=== PATIENT | female | born 1995 | race Caucasian/White ===

== ENCOUNTER → 2022-07-07 | Outpatient (CLI) | payer MEDICAID ==
[2022-07-07 11:18] LABS: Basophils # (auto) 0 10 ^3/uL (0-0.2); Basophils % (auto) 0.4 % (0.0-2.0); Eosinophils # (auto) 0.1 10 ^3/uL (0-0.8); Eosinophils % (auto) 0.6 % (0.0-7.0); Hematocrit 34.5 % (36.0-46.0); Hemoglobin 11.9 g/dL (12.2-16.2); Lymphocytes # (auto) 1.5 10 ^3/uL (0.4-5.4); Lymphocytes % (auto) 14.1 % (10.0-50.0); Mean Corpuscular Hemoglobin 27.1 pg (28.0-32.0); Mean Corpuscular Hgb Conc. 34.4 g/dL (32.0-36.0); Monocytes # (auto) 0.4 10 ^3/uL (0-1.3); Monocytes % (auto) 3.9 % (0.0-12.0); Neutrophils # (auto) 8.6 10 ^3/uL (1.6-8.6); Nucleated Red Blood Cells % 0.1 %; Red Blood Cells 4.37 10^6/uL (4.0-5.20); Red Cell Distribution Width 14.7 % (11.8-14.3); White Blood Cell 10.6 10^3/uL (4.4-10.8)
[2022-07-07 12:00] LABS: Alcohol, Urine < 3.0 mg/dL (0-10); Amphetamine Screen, Urine NEGATIVE (NEGATIVE); Barbiturate Scree,Urine NEGATIVE (NEGATIVE); Benzodiazephine Screen, Urine NEGATIVE (NEGATIVE); Cannabinoid Screen, Urine NEGATIVE (NEGATIVE); Cocaine Screen, Urine NEGATIVE (NEGATIVE); Opiate Scree,Urine NEGATIVE (NEGATIVE); Phencyclidine Screen, Urine NEGATIVE (NEGATIVE)
[2022-07-08 06:07] LABS: RPR Non Reactive (Non Reactive)
== END | disposition home or self-care (01) ==
LOC: LAB 10:50
PROVIDERS: ATTEND Obstetrics & Gynecology
DX: Z34.80 Encounter for supervision of other normal pregnancy, unspecified trimester (principal); N39.0 Urinary tract infection, site not specified; Z31.430 Encounter of female for testing for genetic disease carrier status for procreative management; Z36.0 Encounter for antenatal screening for chromosomal anomalies; Z3A.00 Weeks of gestation of pregnancy not specified
CPT/HCPCS: 36415; 80307; 83036; 84112; 84144; 84702; 85025; 86592; 86703; 86762; 86850; 86900; 86901; 87086; 87340

== ENCOUNTER → 2022-09-27 | Outpatient (CLI) | payer MEDICAID ==
[2022-09-27 09:08] LABS: Hemoglobin 10.6 g/dL (12.2-16.2); White Blood Cell 10.8 10^3/uL (4.4-10.8)
[2022-09-27 09:10] LABS: Basophils # (auto) 0.2 10 ^3/uL (0-0.2); Basophils % (auto) 1.6 % (0.0-2.0); Eosinophils # (auto) 0.2 10 ^3/uL (0-0.8); Eosinophils % (auto) 1.5 % (0.0-7.0); Hematocrit 31.6 % (36.0-46.0); Lymphocytes # (auto) 1.9 10 ^3/uL (0.4-5.4); Lymphocytes % (auto) 17.8 % (10.0-50.0); Mean Corpuscular Hgb Conc. 33.5 g/dL (32.0-36.0); Mean Corpuscular Volume 77.5 fL (80.0-100.0); Monocytes # (auto) 0.4 10 ^3/uL (0-1.3); Neutrophils # (auto) 8.1 10 ^3/uL (1.6-8.6); Neutrophils % (auto) 75.1 % (37.0-80.0); Red Blood Cells 4.08 10^6/uL (4.0-5.20); Red Cell Distribution Width 15.2 % (11.8-14.3)
== END | disposition home or self-care (01) ==
LOC: LAB 08:52
PROVIDERS: ATTEND Obstetrics & Gynecology
DX: O99.810 Abnormal glucose complicating pregnancy (principal); Z3A.00 Weeks of gestation of pregnancy not specified
CPT/HCPCS: 36415; 82951; 83036; 85025

== ENCOUNTER → 2022-10-18 | Outpatient (CLI) | payer MEDICAID ==
[2022-10-18 11:02] LABS: Urine Bacteria FEW /hpf (None Seen); Urine Blood 3+ /uL (Negative); Urine Mucus FEW (None Seen); Urine Specific Gravity 1.026 (1.001-1.035); Urine WBC 24 /hpf (0 - 5)
== END | disposition home or self-care (01) ==
LOC: LAB 10:05
PROVIDERS: ATTEND Obstetrics & Gynecology
DX: Z34.80 Encounter for supervision of other normal pregnancy, unspecified trimester (principal)
CPT/HCPCS: 81001; 87086

== ENCOUNTER → 2022-11-29 | Outpatient (CLI) | payer MEDICAID ==
[2022-11-29 10:55] LABS: Mean Corpuscular Hgb Conc. 32.8 g/dL (32.0-36.0)
[2022-11-29 10:58] LABS: Hematocrit 33.9 % (36.0-46.0); Hemoglobin 11.1 g/dL (12.2-16.2); Mean Corpuscular Hemoglobin 25.5 pg (28.0-32.0); Mean Corpuscular Volume 77.6 fL (80.0-100.0); Red Blood Cells 4.37 10^6/uL (4.0-5.20); Red Cell Distribution Width 17.1 % (11.8-14.3); White Blood Cell 10.8 10^3/uL (4.4-10.8)
[2022-11-29 11:05] LABS: Basophils % (manual) 0 (0.0-2.0); Blast Cells 0; Eosinophils % (manual) 0 (0-7); Metamyelocytes % 0; Myelocytes % 0; Promyelocytes % 0; Reactive Lymphocytes 0
[2022-11-29 11:40] LABS: Band Neutrophils % (manual) 2; Lymphocytes % (manual) 24 (10.0-50.0); Monocytes % (manual) 9 (0-12)
[2022-11-30 06:07] LABS: RPR Non Reactive (Non Reactive)
== END | disposition home or self-care (01) ==
LOC: LAB 10:28
PROVIDERS: ATTEND Obstetrics & Gynecology
DX: Z34.80 Encounter for supervision of other normal pregnancy, unspecified trimester (principal); Z3A.00 Weeks of gestation of pregnancy not specified
CPT/HCPCS: 36415; 84112; 85007; 85027; 86592

== ENCOUNTER 2022-12-21 05:51 | Inpatient (IN) | payer MEDICAID ==
[~2022-12-21] VITALS: Ht 157.5 cm; Wt 91.2 kg
[2022-12-21] MEDS ORDERED: WITCH HAZEL-GLYCERIN PAD TOP PRN (06:15)
[2022-12-21] MEDS ORDERED: PROMETHAZINE HCL 25 MG/ML 1ML IV PRN (06:15)
[2022-12-21] MEDS ORDERED: BUTORPHANOL TARTRATE 2 MG/1 ML VIAL IV PRN ×2 (06:15)
[2022-12-21] MEDS ORDERED: DERMOPLAST 60ML BOTTLE TOP PRN (06:15)
[2022-12-21] MEDS ORDERED: LIDOCAINE 2%HCL (LOCAL ANESTH.) INJ 20ML MDV IJ PRN (06:15)
[2022-12-21] MEDS ORDERED: PHISODERM TOP SOLN 240ML BTL TOP PRN (06:15)
[2022-12-21 06:47] LABS: Basophils # (auto) 0.1 10 ^3/uL (0-0.2); Eosinophils # (auto) 0.1 10 ^3/uL (0-0.8); Eosinophils % (auto) 1.1 % (0.0-7.0); Lymphocytes # (auto) 1.8 10 ^3/uL (0.4-5.4); Monocytes # (auto) 0.5 10 ^3/uL (0-1.3); White Blood Cell 9.6 10^3/uL (4.4-10.8)
[2022-12-21 06:49] LABS: Basophils % (auto) 0.8 % (0.0-2.0); Hematocrit 35.2 % (36.0-46.0); Hemoglobin 11.6 g/dL (12.2-16.2); Lymphocytes % (auto) 18.5 % (10.0-50.0); Mean Corpuscular Volume 78.6 fL (80.0-100.0); Neutrophils # (auto) 7.2 10 ^3/uL (1.6-8.6); Neutrophils % (auto) 74.6 % (37.0-80.0); Nucleated Red Blood Cells % 0.2 %; Red Blood Cells 4.47 10^6/uL (4.0-5.20); Red Cell Distribution Width 17.8 % (11.8-14.3)
[2022-12-21 06:55] LABS: Calcium 8.4 mg/dL (8.5-10.1); Potassium 3.7 mmol/L (3.5-5.1)
[2022-12-21] MEDS: miSOPROStol 50 MCG per PRE-CUT 1/2 TAB PO PRN ×2 (06:59→10:59)
[2022-12-21 07:00] LABS: Albumin 2.8 g/dL (3.4-5.0); BUN/Creatinine Ratio 14.5 (10.0-20.0); Bilirubin, Total 0.3 mg/dL (0.2-1.0); Total Protein 6.5 g/dL (6.4-8.2)
[2022-12-21] MEDS: LACTATED RINGER'S 1,000 ML IV SCH ×2 (07:01→14:15)
[2022-12-21 07:05] LABS: INR 0.93 (0.9-1.15); Partial Thromboplastin Time 26.5 SEC (24.5-34.5)
[2022-12-21] MEDS ORDERED: METHYLERGONOVINE MALEATE 0.2 MG/ML AMP IM ONE (07:15)
[2022-12-21] MEDS ORDERED: miSOPROStol 100 mcg TAB PR PRN (07:15)
[2022-12-21] MEDS ORDERED: CARBOPROST TROMETHAMINE 250 MCG/1ML VIAL IM PRN (07:15)
[2022-12-21] MEDS ORDERED: DIPHENOXYLATE W/ATROPINE 2.5 MG TAB PO PRN (07:15)
[2022-12-21] MEDS ORDERED: miSOPROStol 100 mcg TAB SL PRN (07:15)
[2022-12-21] MEDS ORDERED: LACT. RINGERS/OXYTOCIN 20UNITS 500 ML IV ONE ×2 (07:15→07:45)
[2022-12-21 07:21] LABS: Urine Bacteria FEW /hpf (None Seen); Urine Blood Negative /uL (Negative); Urine Mucus FEW (None Seen); Urine Specific Gravity 1.026 (1.001-1.035); Urine WBC 4 /hpf (0 - 5)
[2022-12-21 07:24] LABS: Alcohol, Urine < 3.0 mg/dL (0-10); Amphetamine Screen, Urine NEGATIVE (NEGATIVE); Barbiturate Scree,Urine NEGATIVE (NEGATIVE); Benzodiazephine Screen, Urine NEGATIVE (NEGATIVE); Cannabinoid Screen, Urine NEGATIVE (NEGATIVE); Cocaine Screen, Urine NEGATIVE (NEGATIVE); Opiate Scree,Urine NEGATIVE (NEGATIVE); Phencyclidine Screen, Urine NEGATIVE (NEGATIVE)
[2022-12-21] MEDS ORDERED: LIDOCAINE HCL 2 %PF INJ 10ML AMP IJ ONE (11:45)
[2022-12-21] MEDS ORDERED: ePHEDrine SULFATE 50 MG/ML AMP IV ONE (11:45)
[2022-12-21] MEDS ORDERED: LACTATED RINGER'S 1,000 ML IV ONE (11:45)
[2022-12-21] MEDS ORDERED: NALOXONE HCL 0.4 MG/ML VIAL IV ONE (11:45)
[2022-12-21] MEDS ORDERED: fentaNYL CITRATE 100 MCG/2 ML VL IV ONE (11:45)
[2022-12-21] MEDS ORDERED: ROPIVACAINE HCL 200 ML EPI SCH (11:45)
[2022-12-21] MEDS ORDERED: ONDANSETRON ODT 4 MG TAB PO PRN (14:00)
[2022-12-21] MEDS ORDERED: ACETAMINOPHEN 325 MG TAB PO PRN (14:00)
[2022-12-21] MEDS: IBUPROFEN 600 MG TAB PO PRN (16:45)
[2022-12-21 18:39] VITALS: BP 105/62
[2022-12-21] MEDS ORDERED: DOCUSATE SOD 100 MG CAP PO SCH (22:00)
[2022-12-21 23:16] VITALS: BP 91/54
[2022-12-22] MEDS: IBUPROFEN 600 MG TAB PO PRN ×2 (01:38→08:02)
[2022-12-22 02:30] VITALS: BP 103/61
[2022-12-22 06:17] LABS: RPR Non Reactive (Non Reactive)
[2022-12-22 07:00] VITALS: BP 104/58
[2022-12-22 08:06] LABS: Rubella Antibodies, IgG <0.90 index (Immune >0.99)
[2022-12-22 11:13] LABS: Basophils # (auto) 0.1 10 ^3/uL (0-0.2); Basophils % (auto) 0.5 % (0.0-2.0); Eosinophils # (auto) 0.1 10 ^3/uL (0-0.8); Eosinophils % (auto) 0.6 % (0.0-7.0); Hematocrit 35.2 % (36.0-46.0); Hemoglobin 11.2 g/dL (12.2-16.2); Lymphocytes # (auto) 2.3 10 ^3/uL (0.4-5.4); Mean Corpuscular Hgb Conc. 31.9 g/dL (32.0-36.0)
[2022-12-22 11:14] LABS: Lymphocytes % (auto) 16.1 % (10.0-50.0); Mean Corpuscular Hemoglobin 25.1 pg (28.0-32.0); Mean Corpuscular Volume 78.7 fL (80.0-100.0); Monocytes # (auto) 0.6 10 ^3/uL (0-1.3); Neutrophils # (auto) 11.2 10 ^3/uL (1.6-8.6); Neutrophils % (auto) 78.8 % (37.0-80.0); Nucleated Red Blood Cells % 0.1 %; Red Blood Cells 4.48 10^6/uL (4.0-5.20); Red Cell Distribution Width 18.1 % (11.8-14.3); White Blood Cell 14.1 10^3/uL (4.4-10.8)
[2022-12-22 11:15] VITALS: BP 106/57
[2022-12-22] MEDS ORDERED: PREN-96 PO (12:18)
[2022-12-22] MEDS ORDERED: ACET-1882 PO (12:18)
[2022-12-22] MEDS ORDERED: DOCU-265 PO (12:18)
[2022-12-22] MEDS ORDERED: IBU600T PO (12:18)
== END 2022-12-22 16:05 | disposition home or self-care (01) | DRG 560 ==
LOC: LDRP 05:51 → OBSVTOIN 06:15 → LDRP 12:42
PROVIDERS: ADMIT Obstetrics & Gynecology; ATTEND Obstetrics & Gynecology
PROC: 10E0XZZ Delivery of Products of Conception, External Approach (ICD-10-PCS; principal; 2022-12-21)
PROC: 0HQ9XZZ Repair Perineum Skin, External Approach (ICD-10-PCS; 2022-12-21)
PROC: 3E0R3BZ Introduction of Anesthetic Agent into Spinal Canal, Percutaneous Approach (ICD-10-PCS; 2022-12-21)
PROC: 00HU33Z Insertion of Infusion Device into Spinal Canal, Percutaneous Approach (ICD-10-PCS; 2022-12-21)
DX: O99.214 Obesity complicating childbirth (principal); Z37.0 Single live birth; E66.01 Morbid (severe) obesity due to excess calories; O70.0 First degree perineal laceration during delivery; Z3A.39 39 weeks gestation of pregnancy
CPT/HCPCS: 36415; 59025; 59409; 62282; 80053; 80307; 81001; 81002; 85025; 85610; 85730; 86592; 86762; 86850; 86900; 86901; 94760; 96360; 96361; 96365; 96366; G0378; J2590

== ENCOUNTER → 2023-12-05 | Outpatient (CLI) | payer MEDICAID ==
[~2023-12-05] MED LIST: ACET-1882 PO; DOCU-265 PO; IBU600T PO; PREN-96 PO
[2023-12-05 11:09] LABS: Basophils # (auto) 0.1 10 ^3/uL (0-0.2); Eosinophils # (auto) 0.2 10 ^3/uL (0-0.8); Hemoglobin 12.5 g/dL (12.2-16.2); Monocytes # (auto) 0.4 10 ^3/uL (0-1.3)
[2023-12-05 11:13] LABS: Basophils % (auto) 0.7 % (0.0-2.0); Eosinophils % (auto) 2.2 % (0.0-7.0); Hematocrit 37.4 % (36.0-46.0); Lymphocytes % (auto) 21.7 % (10.0-50.0); Mean Corpuscular Hemoglobin 26.4 pg (28.0-32.0); Mean Corpuscular Hgb Conc. 33.3 g/dL (32.0-36.0); Mean Corpuscular Volume 79.1 fL (80.0-100.0); Monocytes % (auto) 4.2 % (0.0-12.0); Neutrophils # (auto) 6.7 10 ^3/uL (1.6-8.6); Neutrophils % (auto) 71.2 % (37.0-80.0); Red Blood Cells 4.72 10^6/uL (4.0-5.20); Red Cell Distribution Width 15.7 % (11.8-14.3); White Blood Cell 9.4 10^3/uL (4.4-10.8)
[2023-12-05 11:28] LABS: Amphetamine Screen, Urine Neg (NEGATIVE); Barbiturate Scree,Urine Neg (NEGATIVE); Cocaine Screen, Urine Neg (NEGATIVE)
[2023-12-05 11:29] LABS: Benzodiazephine Screen, Urine Neg (NEGATIVE); Opiate Scree,Urine Neg (NEGATIVE); Phencyclidine Screen, Urine Neg (NEGATIVE)
[2023-12-05 11:30] LABS: Cannabinoid Screen, Urine Neg (NEGATIVE)
[2023-12-06 07:07] LABS: RPR Non Reactive (Non Reactive)
[2023-12-06 08:07] LABS: Varicella Zoster IgG Antibody 344 index (Immune >165)
[2023-12-07 03:06] LABS: Chlamydia Trachomatis, NAA Negative (Negative); Neisseria gonorrhoeae, NAA Negative (Negative)
[2023-12-07 12:07] LABS: QuantiFERON-TB Gold Plus Negative (Negative)
== END | disposition home or self-care (01) ==
LOC: LAB 10:28
PROVIDERS: ATTEND Obstetrics & Gynecology
DX: Z34.80 Encounter for supervision of other normal pregnancy, unspecified trimester (principal); Z72.51 High risk heterosexual behavior; Z3A.00 Weeks of gestation of pregnancy not specified
CPT/HCPCS: 36415; 80307; 83036; 84144; 84702; 85025; 86592; 86703; 86762; 86787; 86803; 86850; 86900; 86901; 87086; 87340

== ENCOUNTER 2023-12-22 08:00 | Emergency (ER) | payer MEDICAID ==
[~2023-12-22] VITALS: Ht 157.5 cm; Wt 82.4 kg
[2023-12-22 08:32] VITALS: BP 116/70; PULSE 89; RESP 16; TEMP 98.9; O2SAT 98
[2023-12-22] MEDS ORDERED: CLIN1CAP70 PO (08:37)
[2023-12-22] MEDS: cefTRIAXone SOD 1,000 MG VL IM ONE (08:49)
== END 2023-12-22 08:54 | disposition home or self-care (01) ==
LOC: ER 08:00
DX: O99.612 Diseases of the digestive system complicating pregnancy, second trimester (principal); K04.7 Periapical abscess without sinus; Z3A.16 16 weeks gestation of pregnancy; Z79.899 Other long term (current) drug therapy
CPT/HCPCS: 96372; 99283; J0696

== ENCOUNTER 2024-02-03 08:42 | Emergency (ER) | payer MEDICAID ==
[~2024-02-03] VITALS: Ht 157.5 cm; Wt 83.8 kg
[~2024-02-03 08:42] MED LIST changes: +CLIN1CAP70 PO
[2024-02-03 09:47] VITALS: BP 116/64; PULSE 94; RESP 16; TEMP 97.6; O2SAT 99
[2024-02-03] MEDS: cefTRIAXone SOD 1,000 MG VL IM ONE (09:56)
[2024-02-03] MEDS ORDERED: IBUP-1456 PO (10:02)
[2024-02-03] MEDS ORDERED: AMOX875T3 PO (10:02)
[2024-02-03] MEDS ORDERED: ACET-1882 PO (10:18)
== END 2024-02-03 10:18 | disposition home or self-care (01) ==
LOC: ER 08:42
DX: K04.7 Periapical abscess without sinus (principal); Z79.899 Other long term (current) drug therapy
CPT/HCPCS: 96372; 99283; J0696

== ENCOUNTER → 2024-04-15 | Outpatient (CLI) | payer MEDICAID ==
[~2024-04-15] MED LIST changes: +AMOX875T3 PO
[2024-04-15 07:51] LABS: Basophils # (auto) 0.1 10 ^3/uL (0-0.2); Eosinophils # (auto) 0.2 10 ^3/uL (0-0.8); Lymphocytes # (auto) 2.1 10 ^3/uL (0.4-5.4); Red Blood Cells 4.26 10^6/uL (4.0-5.20)
[2024-04-15 07:53] LABS: Basophils % (auto) 0.5 % (0.0-2.0); Eosinophils % (auto) 2.2 % (0.0-7.0); Hematocrit 31.6 % (36.0-46.0); Hemoglobin 10.4 g/dL (12.2-16.2); Lymphocytes % (auto) 20.9 % (10.0-50.0); Mean Corpuscular Hemoglobin 24.3 pg (28.0-32.0); Mean Corpuscular Hgb Conc. 32.8 g/dL (32.0-36.0); Mean Corpuscular Volume 74.3 fL (80.0-100.0); Monocytes # (auto) 0.5 10 ^3/uL (0-1.3); Monocytes % (auto) 5.3 % (0.0-12.0); Neutrophils # (auto) 7.3 10 ^3/uL (1.6-8.6); Neutrophils % (auto) 71.1 % (37.0-80.0); Platelet Count (auto) 210 10^3/uL (140-450); Red Cell Distribution Width 16.8 % (11.8-14.3); White Blood Cell 10.2 10^3/uL (4.4-10.8)
== END | disposition home or self-care (01) ==
LOC: LAB 07:28
PROVIDERS: ATTEND Obstetrics & Gynecology
DX: Z34.83 Encounter for supervision of other normal pregnancy, third trimester (principal)
CPT/HCPCS: 36415; 82951; 83036; 85025

== ENCOUNTER → 2024-04-29 | Outpatient (CLI) | payer MEDICAID ==
[2024-04-29 10:50] LABS: Basophils # (auto) 0.1 10 ^3/uL (0-0.2); Basophils % (auto) 0.9 % (0.0-2.0); Eosinophils # (auto) 0.1 10 ^3/uL (0-0.8); Lymphocytes # (auto) 2.1 10 ^3/uL (0.4-5.4); Monocytes # (auto) 0.5 10 ^3/uL (0-1.3); Nucleated Red Blood Cells % 0.1 %; White Blood Cell 8.2 10^3/uL (4.4-10.8)
[2024-04-29 10:52] LABS: Eosinophils % (auto) 1.3 % (0.0-7.0); Hematocrit 30.9 % (36.0-46.0); Lymphocytes % (auto) 25.2 % (10.0-50.0); Mean Corpuscular Hemoglobin 23.5 pg (28.0-32.0); Mean Corpuscular Hgb Conc. 32.3 g/dL (32.0-36.0); Mean Corpuscular Volume 72.8 fL (80.0-100.0); Monocytes % (auto) 6.1 % (0.0-12.0); Neutrophils # (auto) 5.5 10 ^3/uL (1.6-8.6); Neutrophils % (auto) 66.5 % (37.0-80.0); Platelet Count (auto) 192 10^3/uL (140-450); Red Blood Cells 4.25 10^6/uL (4.0-5.20)
[2024-04-30 07:06] LABS: RPR Non Reactive (Non Reactive)
[2024-05-01 06:07] LABS: Chlamydia Trachomatis, NAA Negative (Negative); Neisseria gonorrhoeae, NAA Negative (Negative)
== END | disposition home or self-care (01) ==
LOC: LAB 10:07
PROVIDERS: ATTEND Obstetrics & Gynecology
DX: Z11.3 Encounter for screening for infections with a predominantly sexual mode of transmission (principal)
CPT/HCPCS: 36415; 85025; 86592

== ENCOUNTER 2024-05-01 10:00 | Observation (INO) | payer MEDICAID ==
--- NOTE | 2024-05-01 11:10 | DVH ---
CLINICAL HISTORY: Gestational diabetes. COMPARISON: None TECHNIQUE: biophysical profile was performed. Transabdominal sonographic images of the fetus we re obtained. FINDINGS: The fetus is in cephalic position. heart rate measures 141 BPM. Amniotic fluid index measures 12.3 cm. The placenta is posterior in position. BPP profile is an overall score of 8/8, with 2/2 points for breathing, with at least one episode of breathing over a 30 second duration during a 30 minute observation, 2/2 points for m ovements, with 3 or more discrete body or limb movements, 2/2 points for tone, with one or more episodes of extremity extension with return to flexion, or opening and closing of hand, and 2/ 2 points for amniotic fluid, with at least 1 pocket of amniotic fluid that measures 2 cm in 2 perpend icular planes. IMPRESSION: BPP score of 8/8.
--- NOTE | 2024-05-01 11:23 | DVHDS2 ---
Physician Discharge Progress N Final Diagnosis: gdm Operations or Procedures: Operations or Procedures nst,sono Condition on Discharge: Good Disposition: Home Discharge Instructions: Diet: Consistent carbohydrate Activity: No Restrictions, As Tolerated Medications: na Follow Up Care: Specialist: 1w Discharge Statement: "Patient was advised to return to the ER or call 911 if any headaches, dizziness, shortness of breath, chest pain, abdominal pain, bleeding, fevers, or worsening of medical condition. Patient was counseled about treatment plan, medications, possible side effects, patientverbalized understanding. All questions were answered to the best of my ability. This discharge took greater then 30 minutes in planning, reviewing documentation, counseling the patient, and discussing with other team members." KEYUR JAMES DO May 01, 2024 11:23
== END 2024-05-01 11:28 | disposition home or self-care (01) ==
LOC: LDRP 10:00
PROVIDERS: ADMIT Obstetrics & Gynecology; ATTEND Obstetrics & Gynecology
DX: O24.419 Gestational diabetes mellitus in pregnancy, unspecified control (principal); Z3A.35 35 weeks gestation of pregnancy
CPT/HCPCS: 59025; 76818; 81002; 82948; 82962; 94760; G0378

== ENCOUNTER 2024-05-07 09:55 | Observation (INO) | payer MEDICAID ==
[~2024-05-07] VITALS: Ht 154.9 cm; Wt 81.6 kg
--- NOTE | 2024-05-07 11:08 | DVH ---
BIOPHYSICAL PROFILE HISTORY: GDMA1 TECHNIQUE: Multiple transabdominal real-time grayscale sonographic images through the gravid uterus of the fetus with duplex Doppler color flow and M-mode spectral analysis FINDINGS: BIOPHYSICAL PROFILE: breathing score: 2 movement score: 2 tone score: 2 Quantitative MEE score: 2 (MEE: 10.3 Cm.) Total score: 8 The cervix not well visualized. Single live fetus in cephalic presentation. heart rate 159 beats per minute. IMPRESSION: Biophysical profile score: 8
[2024-05-07] MEDS: ONDANSETRON HCL 4 MG/2 ML VIAL IV ONE (12:29)
[2024-05-07] MEDS: LACTATED RINGER'S 1,000 ML IV ONE (12:30)
--- NOTE | 2024-05-07 20:26 | DVHDS2 ---
Physician Discharge Progress N Final Diagnosis: testing for GDM, A1 Secondary Diagnosis: upper respiratory infection Operations or Procedures: Operations or Procedures 29yo IUP@36.2wks, c/o N/V and having a cold VSS UA wnl 1L LR IV bolus and zofran IVP given NST reactive (verified by 2 RNs) BPP WNL FKC/PTL precautions reviewed Condition on Discharge: Stable Disposition: Home Discharge Instructions: Diet: Consistent carbohydrate Activity: No Restrictions, As Tolerated Medications: see med list Follow Up Care: Specialist: f/u in 1 wk, stay hydrated and take OTC cold medication (list of meds okay to take in given by RN) Discharge Statement: "Patient was advised to return to the ER or call 911 if any headaches, dizziness, shortness of breath, chest pain, abdominal pain, bleeding, fevers, or worsening of medical condition. Patient was counseled about treatment plan, medications, possible side effects, patientverbalized understanding. All questions were answered to the best of my ability. This discharge took greater then 30 minutes in planning, reviewing documentation, counseling the patient, and discussing with other team members." STEFFEN CANDELARIO CNM May 07, 2024 20:26
== END 2024-05-07 16:04 | disposition home or self-care (01) ==
LOC: LDRP 09:55
PROVIDERS: ADMIT Obstetrics & Gynecology; ATTEND Obstetrics & Gynecology
DX: O21.2 Late vomiting of pregnancy (principal); O99.513 Diseases of the respiratory system complicating pregnancy, third trimester; J06.9 Acute upper respiratory infection, unspecified; O24.419 Gestational diabetes mellitus in pregnancy, unspecified control; Z98.890 Other specified postprocedural states; Z79.899 Other long term (current) drug therapy; Z3A.36 36 weeks gestation of pregnancy
CPT/HCPCS: 59025; 76818; 81002; 82948; 82962; 94760; 96361; 96374; G0378; J2405

== ENCOUNTER 2024-05-14 10:38 | Observation (INO) | payer MEDICAID ==
--- NOTE | 2024-05-14 11:59 | DVH ---
BIOPHYSICAL PROFILE HISTORY: GDMA1 TECHNIQUE: Multiple transabdominal real-time grayscale sonographic images through the gravid uterus of the fetus with duplex Doppler color flow and M-mode spectral analysis FINDINGS: BIOPHYSICAL PROFILE: breathing score: 2 movement score: 2 tone score: 2 Quantitative MEE score: 2 (MEE: 11.7 Cm.) Total score: 8 The cervix not well visualized. Single live fetus in vertex presentation. heart rate 138 beats per minute. Posterior placenta without previa or abruption IMPRESSION: Biophysical profile score: 8
--- NOTE | 2024-05-14 12:11 | DVHDS2 ---
Physician Discharge Progress N Final Diagnosis: testing for GDM, A1 Operations or Procedures: Operations or Procedures 29yo IUP@37.2wks VSS UA wnl NST reactive (verified by 2 RNs) BPP wnl FKC/PTL precautions reviewed Condition on Discharge: Stable Disposition: Home Discharge Instructions: Diet: Consistent carbohydrate Activity: No Restrictions, As Tolerated Medications: see med list Follow Up Care: Specialist: f/u in 1 wk Discharge Statement: "Patient was advised to return to the ER or call 911 if any headaches, dizziness, shortness of breath, chest pain, abdominal pain, bleeding, fevers, or worsening of medical condition. Patient was counseled about treatment plan, medications, possible side effects, patientverbalized understanding. All questions were answered to the best of my ability. This discharge took greater then 30 minutes in planning, reviewing docu mentation, counseling the patient, and discussing with other team members." STEFFEN CANDELARIO CNM May 14, 2024 12:11
== END 2024-05-14 12:16 | disposition home or self-care (01) ==
LOC: LDRP 10:38
PROVIDERS: ADMIT Obstetrics & Gynecology; ATTEND Obstetrics & Gynecology
DX: O24.419 Gestational diabetes mellitus in pregnancy, unspecified control (principal); Z3A.37 37 weeks gestation of pregnancy; Z79.899 Other long term (current) drug therapy; Z98.890 Other specified postprocedural states
CPT/HCPCS: 59025; 76818; 81002; 82948; 82962; 94760; G0378

== ENCOUNTER 2024-05-21 09:40 | Observation (INO) | payer MEDICAID ==
[~2024-05-21] VITALS: Ht 165.1 cm; Wt 90.7 kg
--- NOTE | 2024-05-21 10:48 | DVH ---
BIOPHYSICAL PROFILE HISTORY: GDMA1 Comparison Study: 05/14/2024 TECHNIQUE: Multiple real-time grayscale sonographic images through the gravid uterus of the fetus wi th duplex Doppler color flow and M-mode spectral analysis FINDINGS: BIOPHYSICAL PROFILE: breathing score: 2 movement score: 2 tone score: 2 Quantitative MEE score: 2 (MEE: 15.4 Cm.) Total score: 8 The cervix is closed and measures 2.9 cm with funneling Single live fetus in cephalic presentation. heart rate 136 beats per minute. Posterior placenta without previa or abruption IMPRESSION: Biophysical profile score: 8 The cervix is closed and measures 2.9 cm with funneling
[2024-05-21] MEDS ORDERED: LACTATED RINGER'S 1,000 ML IV ONE (13:45)
--- NOTE | 2024-05-21 21:59 | DVHDS2 ---
Physician Discharge Progress N Final Diagnosis: testing for 2VC/GDM,A1 Operations or Procedures: Operations or Procedures 29yo IUP@38.2wks VSS UA wnl Initally FHR baseline appeared to be 145 then FHR baseline prior to d/c was 120 with prolonged accels, moderate variability, -decels (NST reactive) 1L LR IV fluid given BPP wnl FKC/Labor precautions reviewed. Dr. Paulino reviewed EFM too, agrees POC. Condition on Discharge: Stable Disposition: Home Discharge Instructions: Diet: Consistent carbohydrate Activity: No Restrictions, As Tolerated Medications: see med list Follow Up Care: Specialist: f/u in 1wk Discharge Statement: "Patient was advised to return to the ER or call 911 if any headaches, dizziness, shortness of breath, chest pain, abdominal pain, bleeding, fevers, or worsening of medical condition. Patient was counseled about treatment plan, medications, possible side effects, patientverbalized understanding. All questions were answered to the best of my ability. This discharge took greater then 30 minutes in planning, reviewing documentation, counseling the patient, and discussing with other team members." STEFFEN CANDELARIO CNM May 21, 2024 21:59
== END 2024-05-21 13:20 | disposition home or self-care (01) ==
LOC: LDRP 09:40 → UNDOADMOB 09:40 → LDRP 09:57 → UNDODISOB 13:20
PROVIDERS: ADMIT Obstetrics & Gynecology; ATTEND Obstetrics & Gynecology
CPT/HCPCS: 59025 ×2; 76818 ×2; 81002 ×2; 82948 ×2; 82962 ×2; 94760 ×2; 96360 ×2; 96361 ×2; G0378

== ENCOUNTER 2024-05-27 20:09 | Inpatient (IN) | payer MEDICAID ==
[~2024-05-27] VITALS: Ht 30.5 cm; Wt 0.5 kg
[2024-05-27] MEDS ORDERED: BUTORPHANOL TARTRATE 2 MG/1 ML VIAL IV PRN ×2 (21:00)
[2024-05-27] MEDS ORDERED: LIDOCAINE 2%HCL (LOCAL ANESTH.) INJ 20ML MDV IJ PRN (21:00)
--- NOTE | 2024-05-27 21:11 | DVHHP ---
ADMIT DATE: 05/27/2024 CHIEF COMPLAINT: Labor. HISTORY OF PRESENT ILLNESS: The patient is a 29-year-old 4, para 5 with EDC 06/02/2024, estimated gestational age of 39 weeks, admitted for active labor. The patient has GDM A1. She denies having any rupture of membrane or vaginal bleeding. PAST MEDICAL HISTORY: None. PAST SURGICAL HISTORY: None. SOCIAL HISTORY: None. FAMILY HISTORY: None. OBSTETRIC AND GYNECOLOGIC HISTORY: Four normal vaginal delivery. REVIEW OF SYSTEMS: Consistent with HPI. PHYSICAL EXAMINATION: VITAL SIGNS: Stable, afebrile. HEENT: Within normal limits. CARDIOVASCULAR: Regular rate and rhythm. LUNGS: Clear to auscultation. BREASTS: Symmetrical. No masses. ABDOMEN: Gravid. Positive heart rate. PELVIC: 5, 90, -1. EXTREMITIES: No clubbing, cyanosis or edema. IMPRESSION: * Intrauterine at 39 weeks in active labor. * Gestational diabetes mellitus. PLAN: Expectant vaginal delivery. Informed consent obtained. Risks, complication of delivery including infection, bleeding, hematoma formation, possibility of shoulder dystocia discussed with the patient. Options reviewed. All questions answered. Option of primary discussed with the patient. The patient does not want primary in event of macrosomia. She understands risks, complication of shoulder dystocia, long-term, short-term morbidity and mortality discussed with the patient. The patient wishes to proceed with planned procedure. DO ESA Crane/TED TID: [id number] RECEIPT: [id number]
[2024-05-27] MEDS ORDERED: NALOXONE HCL 0.4 MG/ML VIAL IV ONE (21:15)
[2024-05-27] MEDS ORDERED: ePHEDrine SULFATE 50 MG/ML AMP IV ONE (21:15)
[2024-05-27 21:37] LABS: Hematocrit 35.1 % (36.0-46.0); Lymphocytes # (auto) 1.9 10 ^3/uL (0.4-5.4); Mean Corpuscular Hemoglobin 21.8 pg (28.0-32.0); Mean Corpuscular Hgb Conc. 31.3 g/dL (32.0-36.0); Monocytes # (auto) 0.6 10 ^3/uL (0-1.3); Neutrophils # (auto) 8.9 10 ^3/uL (1.6-8.6); Platelet Count (auto) 200 10^3/uL (140-450); White Blood Cell 11.5 10^3/uL (4.4-10.8)
[2024-05-27 21:38] LABS: Basophils # (auto) 0 10 ^3/uL (0-0.2); Basophils % (auto) 0.3 % (0.0-2.0); Eosinophils # (auto) 0 10 ^3/uL (0-0.8); Eosinophils % (auto) 0.4 % (0.0-7.0); Lymphocytes % (auto) 16.5 % (10.0-50.0); Mean Corpuscular Volume 69.7 fL (80.0-100.0); Monocytes % (auto) 5.2 % (0.0-12.0); Neutrophils % (auto) 77.6 % (37.0-80.0); Nucleated Red Blood Cells % 0.2 %; Red Blood Cells 5.03 10^6/uL (4.0-5.20); Red Cell Distribution Width 18.4 % (11.8-14.3)
[2024-05-27 21:45] LABS: Urine Bacteria FEW /hpf (None Seen); Urine Blood Negative /uL (Negative); Urine Clarity Turbid (Clear); Urine Color Light-Yellow (Yellow); Urine Mucus FEW (None Seen); Urine Protein, UAD TRACE (Negative); Urine Specific Gravity 1.016 (1.001-1.035); Urine Urobilinogen Normal (Negative); Urine WBC 6 /hpf (0 - 5); Urine pH 6.5 (5.0-9.0)
[2024-05-27 21:56] LABS: INR 0.9 (0.9-1.15); Partial Thromboplastin Time 25.4 SEC (24.5-34.5); Prothrombin Time 9.6 sec (9.3-11.8)
[2024-05-27 22:04] LABS: Amphetamine Screen, Urine Neg (NEGATIVE); Barbiturate Scree,Urine Neg (NEGATIVE); Benzodiazephine Screen, Urine Neg (NEGATIVE); Cocaine Screen, Urine Neg (NEGATIVE); Opiate Scree,Urine Neg (NEGATIVE); Phencyclidine Screen, Urine Neg (NEGATIVE)
[2024-05-27] MEDS: LACTATED RINGER'S 1,000 ML IV ONE (22:04)
[2024-05-27 22:05] LABS: Cannabinoid Screen, Urine Neg (NEGATIVE)
[2024-05-27 22:06] LABS: Alanine Aminotransferase 15 U/L (7-40); Alkaline Phosphatase 169 U/L (46-116); Calcium 9.7 mg/dL (8.7-10.4); Carbon Dioxide 18 mmol/L (20-31); Chloride 107 mmol/L (98-107)
[2024-05-27 22:07] LABS: Albumin 4.2 g/dL (3.2-4.8); Anion Gap 14 (5-15); Aspartate Aminotransferase 11 U/L (13-40); BUN/Creatinine Ratio 9.2 (10.0-20.0); Bilirubin, Total 0.4 mg/dL (0.2-1.0); Blood Urea Nitrogen 6 mg/dL (9-23); Glucose 86 mg/dL (74-106); Potassium 3.5 mmol/L (3.5-5.1); Sodium 139 mmol/L (136-145); Total Protein 6.5 g/dL (5.7-8.2)
[2024-05-27] MEDS: fentaNYL CITRATE 100 MCG/2 ML VL ONE (22:45)
--- NOTE | 2024-05-27 23:35 | EPIDURAL ---
Anesthesia Procedural Note - Epidural Informed consent obtained?: Yes Medication Administered: Fentanyl 100 mcg Sterile prept drape: Yes Spinal level of insertion: L4-L5 Test dose of lidocaine & Epine: Negative Infusion started: Yes KESHIA VILLAFUERTE MD May 27, 2024 23:35
[2024-05-28] MEDS: fentaNYL CITRATE 100 MCG/2 ML VL IV ONE (00:16)
[2024-05-28] MEDS: LACTATED RINGER'S 1,000 ML IV SCH (01:19)
[2024-05-28] MEDS ORDERED: miSOPROStol 100 mcg TAB SL PRN (01:30)
[2024-05-28] MEDS ORDERED: miSOPROStol 100 mcg TAB PR PRN (01:30)
[2024-05-28] MEDS ORDERED: CARBOPROST TROMETHAMINE 250 MCG/1ML VIAL IM PRN (01:30)
[2024-05-28] MEDS ORDERED: METHYLERGONOVINE MALEATE 0.2 MG/ML AMP IM ONE (02:30)
[2024-05-28] MEDS: WITCH HAZEL-GLYCERIN PAD TOP PRN (02:41)
[2024-05-28] MEDS: DERMOPLAST 60ML BOTTLE TOP PRN (02:41)
[2024-05-28] MEDS: PHISODERM TOP SOLN 240ML BTL TOP PRN (02:41)
--- NOTE | 2024-05-28 04:41 | DVHPN2 ---
Chief Complaints Patient reports: No new complaints, Feels better Nursing reports: No new complaints Objective Vitals Vital Signs Date Time Temp Pulse Resp B/P (MAP) Pulse Ox O2 Delivery O2 Flow Rate FiO2 05/27/24 22:45 116/67 Medications Current Medications Medications (Trade) Dose Ordered Sig/Elvia Route PRN Reason Start Time Stop Time Status Last Admin Benzocaine (Dermoplast) 1 applic PRN PRN TOP PERINEAL AREA DISCOMFORT 05/27/24 21:00 05/28/24 02:41 Butorphanol Tartrate (Stadol Injection) 1 mg Q4HPRN PRN IV MODERATE PAIN (4-6 PAIN SCALE) 05/27/24 21:00 Butorphanol Tartrate (Stadol Injection) 2 mg Q4HPRN PRN IV SEVERE PAIN (7-10 PAIN SCALE) 05/27/24 21:00 Lactated Ringer's 1,000 ml @ 125 mls/hr Q8H IV 05/27/24 21:00 05/28/24 01:19 Lidocaine HCl (Xylocaine) 20 ml ONCE PRN IJ PERINEAL AREA DISCOMFORT 05/27/24 21:00 Misoprostol (Cytotec) 200 mcg ONCE PRN SL BLEED/HEMORRHAGE 05/28/24 01:30 Misoprostol (Cytotec) 600 mcg ONCE PRN DC BLEED/HEMORRHAGE 05/28/24 01:30 Sodium Lauryl Sulfate (Phisoderm) 240 ml PRN PRN TOP PERINEAL AREA DISCOMFORT 05/27/24 21:00 05/28/24 02:41 Kenton Oliver (Tucks) 1 pad PRN PRN TOP PERINEAL AREA DISCOMFORT 05/27/24 21:00 05/28/24 02:41 Others VE=10C,/-1/100 Studies Laboratory Tests 05/27/24 21:12 Test 05/27/24 21:12 Range/Units Serum Glucose 86 74-106 mg/dL Ass/Plan Assessment ACTIVE LAbop Plan wants to try going natural on her own KEYUR JAMES May 28, 2024 04:41
--- NOTE | 2024-05-28 08:01 | LDN2 ---
Labor and Delivery Note Date 05/28/24 Age 29 5 Para 5 now AB 0 EDC 06/02/24 EGA 39.2wks Diagnosis spontaneous labor, AROM, then Vaginal Delivery: VTX Vacuum Assisted: No Placenta: Spontaneous Sex: Male Weight pending Apgars 8/8 Nuchal Cord Present: No Nuchal Cord Transected: No Amniotic Fluid: Clear Anesthesia epidural Episiotomy: No Extension: No Lacerations: No Repaired with n/a EBL QBL 300ml Complications none Conditions stable [employer] Percy Delivery Summary At 0734 this 29yo now delivered a viable Male by w/ APGARS 8/8. YURIY presentation. placed skin to skin on pts chest. Cord clamped and cut after pulsation ceased. Cord blood sent. Intact 3-vessel cord placenta delivered spontaneously, Ruben. Pitocin IV bolus started. Placenta sent to pathology. Patient had epidural anesthesia. Cervix/vagina inspected (intact) and perineal abrasion noted, hemostatic, not repaired. Fundus at U, firm, midline, and light lochia. QBL 300ml. VSS. Count correct x2. Patient to care and baby to couplet care, both stable. STEFFEN CANDELARIO CNM May 28, 2024 08:01
[2024-05-28] MEDS: IBUPROFEN 600 MG TAB PO PRN (10:35)
[2024-05-28] MEDS: PRENATAL VITAMIN TAB PO SCH (10:35)
[2024-05-28] MEDS: LACT. RINGERS/OXYTOCIN 20UNITS 500 ML IV ONE ×2 (10:36)
[2024-05-28 11:30] VITALS: BP 100/51; PULSE 73; RESP 18; TEMP 99.1; O2SAT 95
[2024-05-28] MEDS: ACETAMINOPHEN 325 MG TAB PO PRN (11:41)
[2024-05-28 15:30] VITALS: BP 114/62; PULSE 80; RESP 18; TEMP 99; O2SAT 97
[2024-05-28 19:00] VITALS: BP 105/61; PULSE 80; RESP 16; TEMP 97.8; O2SAT 97
[2024-05-28] MEDS: DOCUSATE SOD 100 MG CAP PO SCH (22:00)
[2024-05-28 23:00] VITALS: BP 94/52; PULSE 77; RESP 18; TEMP 98.7; O2SAT 97
[2024-05-29 03:15] VITALS: BP 98/54; PULSE 73; RESP 16; TEMP 97.9; O2SAT 96
[2024-05-29 06:57] VITALS: BP 106/61; PULSE 60; RESP 16; TEMP 99; O2SAT 99
--- NOTE | 2024-05-29 07:31 | DVHPN2 ---
Chief Complaints Patient reports: No new complaints, Feels better Nursing reports: No new complaints Objective Vitals Vital Signs Date Time Temp Pulse Resp B/P (MAP) Pulse Ox O2 Delivery O2 Flow Rate FiO2 05/29/24 06:57 99.0 60 106/61 (76) 99 99.0 05/29/24 03:15 16 05/28/24 19:00 Room Air Medications Current Medications Medications (Trade) Dose Ordered Sig/Elvia Route PRN Reason Start Time Stop Time Status Last Admin Acetaminophen (Tylenol Tablet) 650 mg Q6HPRN PRN PO MILD PAIN (1-3 PAIN SCALE) 05/28/24 08:15 05/28/24 18:22 Docusate Sodium (Colace Capsule) 200 mg HS PO 05/28/24 22:00 Ibuprofen (Motrin Tablet) 600 mg Q6HP PRN PO MODERATE PAIN (4-6 PAIN SCALE) 05/28/24 08:15 05/28/24 16:41 Prenat Multivit/ [place]/Iron/Folic Ac (Prenavite Tablet) 1 DAILY PO 05/28/24 10:00 05/28/24 10:35 General: Normal Lungs: Normal Cardiovascular: Normal Abdominal: Soft Extremities: Normal Studies Laboratory Tests 05/27/24 21:12 Test 05/27/24 21:12 Range/Units Serum Glucose 86 74-106 mg/dL Ass/Plan Assessment s/p Plan dc home fu in [facility] KEYUR JAMES May 29, 2024 07:31
--- NOTE | 2024-05-29 07:32 | DVHDS2 ---
Obstetrics Discharge Summary Obstetrics Discharge Summary Date of Admission: May 27, 2024 Date of Discharge: May 29, 2024 Reason For Admission: Onset of Labor Procedures: NST Intrapartum Procedures: Spontaneous vaginal deliv Procedures: None Operative Complicat: None Discharge Diagnosis: Term -Delivered Discharge Information: Activity (Other), Diet (Routine), Medications (None), Instructions (Routine), Discharge to (Home), Discarge date (05-29) KEYUR JAMES DO May 29, 2024 07:32
[2024-05-29 08:07] LABS: RPR Non Reactive (Non Reactive)
[2024-05-29 08:29] LABS: Basophils # (auto) 0.1 10 ^3/uL (0-0.2); Basophils % (auto) 0.7 % (0.0-2.0); Eosinophils # (auto) 0.1 10 ^3/uL (0-0.8); Eosinophils % (auto) 1.1 % (0.0-7.0); Hematocrit 33.2 % (36.0-46.0); Hemoglobin 10.3 g/dL (12.2-16.2); Lymphocytes # (auto) 2.7 10 ^3/uL (0.4-5.4); Lymphocytes % (auto) 21.4 % (10.0-50.0); Mean Corpuscular Hemoglobin 21.9 pg (28.0-32.0); Mean Corpuscular Hgb Conc. 31.2 g/dL (32.0-36.0); Mean Corpuscular Volume 70.2 fL (80.0-100.0); Monocytes # (auto) 0.2 10 ^3/uL (0-1.3); Monocytes % (auto) 1.7 % (0.0-12.0); Neutrophils # (auto) 9.5 10 ^3/uL (1.6-8.6); Neutrophils % (auto) 75.1 % (37.0-80.0); Nucleated Red Blood Cells % 0.1 %; Platelet Count (auto) 190 10^3/uL (140-450); Red Blood Cells 4.73 10^6/uL (4.0-5.20); Red Cell Distribution Width 19.1 % (11.8-14.3); White Blood Cell 12.6 10^3/uL (4.4-10.8)
[2024-05-29 11:00] VITALS: BP 105/61; PULSE 80; RESP 16; TEMP 98.8; O2SAT 97
[2024-05-29 15:05] VITALS: BP 116/67; PULSE 89; RESP 16; TEMP 99.5; O2SAT 97
== END 2024-05-29 15:35 | disposition home or self-care (01) | DRG 560 ==
LOC: LDRP 20:09 → OBSVTOIN 20:58
PROVIDERS: ADMIT Obstetrics & Gynecology; ATTEND Obstetrics & Gynecology
PROC: 3E0R3BZ Introduction of Anesthetic Agent into Spinal Canal, Percutaneous Approach (ICD-10-PCS; 2024-05-27)
PROC: 00HU33Z Insertion of Infusion Device into Spinal Canal, Percutaneous Approach (ICD-10-PCS; 2024-05-27)
PROC: 10E0XZZ Delivery of Products of Conception, External Approach (ICD-10-PCS; principal; 2024-05-28)
DX: O24.420 Gestational diabetes mellitus in childbirth, diet controlled (principal); Z37.0 Single live birth; Z3A.39 39 weeks gestation of pregnancy
CPT/HCPCS: 36415; 59025; 59409; 62282; 80053; 80307; 81001; 81002; 82962; 85025; 85610; 85730; 86592; 86703; 86780; 86850; 86900; 86901; 94760; 94762; 96360; 96361; 96365; 96366; G0378; J2590